=== PATIENT | female | born 1975 | race Hispanic/Latino ===

== ENCOUNTER 2019-04-10 21:26 | Emergency (ER) | payer BC ==
[2019-04-10] MEDS ORDERED: Proparacaine 0.5% Opth 15 ML BOT ONE (21:38)
[2019-04-10] MEDS ORDERED: Ketorolac Tromethamine 30 MG/ML VIAL ONE (21:47)
== END 2019-04-10 22:12 | disposition home or self-care (01) ==
LOC: SCSER 21:26
DX: R51 Headache (principal); R22.0 Localized swelling, mass and lump, head; E78.5 Hyperlipidemia, unspecified; E78.00 Pure hypercholesterolemia, unspecified; K21.9 Gastro-esophageal reflux disease without esophagitis; F32.9 Major depressive disorder, single episode, unspecified
CPT/HCPCS: 96372; 99283; J1885